=== PATIENT | male | born 1965 | race Two or more races ===

== ENCOUNTER 2024-05-03 12:46 | Emergency (ER) | payer BC, SELFPAY ==
[2024-05-03 12:47] VITALS: BMI 32.5
[2024-05-03 13:51] VITALS: BP 170/129; BP 180/131; PULSE 107; RESP 20; TEMP 36.8; O2SAT 97
--- NOTE | 2024-05-03 14:45 | PD.EDADULT ---
ED General RME/HPI General Chief complaint: Neuro Symptoms/Deficit Stated complaint: FACIAL DROOP SINCE SATURDAY Time Seen by Provider: 05/03/24 14:39 Arrival date/time: 05/03/24 12:46 CC: Right-sided facial droop HPI onset 3 and half days ago no prior history of similar events patient states he has a drooping of his right face he is unable to close his right eye completely complaining also of loss of sense of taste and smell, mild pain to the right face. And some very mild photosensitivity. Denies fever chills or deficits of the upper and lower extremity. Denies any word salad difficulty speaking. No other complaints at this time. Related Data Previous Rx's ?Medication ?Instructions ?Recorded prednisone 20 mg tablet See Taper PO BID 3 days #6 tabs 05/03/24 Allergies Allergy/AdvReac Type Severity Reaction Status Date / Time No Known Allergies Allergy Verified 05/03/24 12:47 Review of Systems Review of Systems Narrative Review of Systems: GEN: No fever, no chills, no weight loss EYES: No discharge, no visual changes, no pain HEENT: No ear pain, no congestion, no sore throat PULM: No shortness of breath, no cough, no congestion CV: No chest pain, no dyspnea on exertion, no palpitations GI: No nausea, no vomiting, no diarrhea, no pain, no constipation : No frequency, no urgency, no dysuria MUSC/SKEL: No joint pain, no back pain SKIN: No rash PSYCH: No hallucinations, no depression HEME/LYMPH: No easy bleeding or bruising tendencies NEURO: No weakness, no headache, right facial droop Past Medical History Social History SMOKING STATUS: Never smoker ED Exam Narrative Physical exam: [General: Obese not in cot no acute distress Head normocephalic HEENT: Face: Right-sided facial droop, droop with smile, ptosis in the right eye, pupils are PERRLA EOMs are intact tracking is on and hindered. Nose no rhinorrhea mouth pink moist membranes uvula is midline. Within acceptable limits Neck is supple nontender Chest equal chest rise nontender to palpation Respiratory: Clear to auscultation no wheezes crackles or rubs CV: Rate rhythm is regular no murmurs rubs or clicks Abdomen is distended secondary to body habitus soft nontender no masses positive bowel sounds all 4 quadrants Back: No CVA tenderness no spinous process tenderness from cervical spine thoracic and lumbar spine Skin: Intact no petechiae rash induration ulceration or crepitus Extremities: Moving all extremity against resistance cap refill less than 2 seconds neurosensory intact Neuro: Awake alert oriented x3 Glascow coma 15 no focal deficits] Course Quality Measures none Orders Category Date Time Status hydrALAZINE HCL [Apresoline] Med 05/03/24 14:45 Once 25 mg PO X1 ONE Vital Signs Vital signs: Vital Signs Temperature 98.3 F 05/03/24 13:51 Pulse Rate 107 H 05/03/24 13:51 Respiratory Rate 20 05/03/24 13:51 Blood Pressure 180/131 H 05/03/24 13:51 Pulse Oximetry (%) 97 05/03/24 13:51 Oxygen Delivery Method Room Air 05/03/24 13:51 MDM Patient data External records reviewed:: [facility] previous records Clinical information provided by:: patient Social determinants that could affect healthcare access:: none Patient has the following chronic illnesses:: Hypertension How is presenting disease/condition affected by chronic disease/condition?: uneffected by Evaluation data The following diagnostics were reviewed and interpreted by me:: other (specify) (None) Lab and/or radiology exams considered but not ordered:: None Interpretation Summary: Altman's palsy, hypertension Medications Medications considered but not ordered:: None Medication administrations:: Medication Administration History Hydralazine HCl (Hydralazine Hcl 25 Mg Tablet) 25 mg PO X1 ONE Stop: 05/03/24 14:46 None Consultations Consultation(s) initiated? (list below): No Diagnosis Differential Diagnosis ED Complaint MDM: CVA TIA Altman's palsy Most likely diagnosis given after review of the tests above:: Altman's palsy hypertension Admission Indicated Admission indicated?: not indicated Explain why admission is indicated or not indicated:: Stable for outpatient follow-up Admission Request Was there a request for admission?: No Disposition Plan Disposition Plan: Discharge Discharge Attestation Discharge Attestation: The patient and all family members were given an opportunity to ask questions and understood the discharge instructions. Discharge instructions specifically effects, indications for sooner follow up or return to the emergency department, and the expected course of current diagnosis. Patient condition: Stable Medical Decision Making Differential Diagnosis Differential Diagnosis: CVA TIA Altman's palsy Discharge Plan Plan Patient Disposition: HOME (Self Care) Patient condition on transfer: Stable Prescriptions/Referrals Prescriptions/Med Rec: New prednisone 20 mg tablet See Taper PO BID 3 Days Qty: 6 0RF Taper: Prednisone Taper 20 mg DAILY for 2 Days and 0 Hour 10 mg DAILY for 2 Days and 0 Hour 5 mg DAILY for 7 Days and 0 Hour Referrals: Truman Velasquez [Primary Care Provider] - In 1 week Problem List Clinical Impression: Altman's palsy, Hypertension Patient/Caregiver Discharge Instructions Education Materials: ED Hypertension, Established, ED Altman's Palsy Additional Instructions: Take medications as prescribed, follow-up with your primary care doctor. If there is worsening symptoms including garbled speech or weakness in your upper or lower extremities return immediately to the emergency room for reevaluation. Print Language: Yoruba Stand Alone Forms: Kary Award Info., Patient Portal Info Letter, Work/School Release PA/DIRECTOR OF [employer] Supervising Physician PA/[employer] OF [employer] Supervising Physician: Jean Marie Thomas ENP
[2024-05-03 14:51] VITALS: BP 160/122; PULSE 98
[2024-05-03] MEDS: hydrALAZINE HCL 25 MG TABLET PO (14:51)
[2024-05-03 15:32] VITALS: BP 156/106; PULSE 98; RESP 18; TEMP 36.9; O2SAT 95
== END 2024-05-03 15:32 | disposition home or self-care (01) ==
PROVIDERS: Emergency Provider Emergency Medicine; PCP Internal Medicine
DX: G51.0 Bell's palsy (principal); I10 Essential (primary) hypertension
CPT/HCPCS: 99282; A9270

== ENCOUNTER → 2024-07-02 | Outpatient (CLI) | payer BC, SELFPAY ==
[2024-07-02 08:57] LABS: Basophils % (Auto) 1 % (0-2.5); Eosinophils # (Auto) 0.2 Thou/mm3 (0.0-0.5); Eosinophils % (Auto) 4 % (0-10); Hematocrit 48.7 % (41.0-53.0); Hemoglobin 17.7 g/dL (13.5-16.0); Immature Granulocytes % (Auto) 0 % (0-0); Immature Granulocytes Auto 0.01 Thou/mm3 (0.00-0.00); Lymphocytes % (Auto) 36 % (10-50); Mean Corpuscular HGB Conc 36.3 g/dl (31.0-37.0); Mean Corpuscular Hemoglobin 34.8 pg (25.0-35.0); Mean Corpuscular Volume 96 fL (80-100); Monocytes # (Auto) 0.5 Thou/mm3 (0.0-0.8); Monocytes % (Auto) 9 % (0-12); Neutrophils # (Auto) 2.8 Thou/mm3 (1.8-7.7); Neutrophils % (Auto) 50 % (37-80); Nucleated Red Blood Cell % 0 /100 WBC (0); Platelet Count 162 Thou/mm3 (140-440); RDW Standard Deviation 45.3 fL (35.1-43.9); Red Blood Count 5.08 Miln/mm3 (4.50-5.90); White Blood Count 5.5 Thou/mm3 (3.8-10.6)
[2024-07-02 09:03] LABS: Glucose Estimated Average 105 mg/dL (80-131); Hemoglobin A1C 5.3 % Hgb (4.8-6.0)
[2024-07-02 09:21] LABS: Alanine Aminotransferase 57 U/L (10-49); Albumin, Serum 4.2 gm/dL (3.5-5.0); Albumin/Globulin Ratio 1.8 (1.2-2.2); Alkaline Phosphatase 88 U/L (46-116); Anion Gap 7 (7-16); Aspartate Amino Transferase 58 U/L (0-34); BUN/Creatinine Ratio 13 Ratio (12-20); Bilirubin,Total 1.8 mg/dL (0.3-1.2); Blood Urea Nitrogen 13 mg/dL (9-23); Calcium 9.9 mg/dL (8.3-10.6); Calcium (Corrected) 9.9 mg/dL (8.5-10.1); Cardiac Risk Estimate 5.2 RATIO (4.0-6.7); Chloride 108 mMol/L (98-107); Cholesterol 182 mg/dL (132-200); Globulin 2.4 gm/dL (2.3-3.5); Glucose 109 mg/dL (74-106); HDL Cholesterol 35 mg/dL (40-60); LDL Cholesterol,Calculated 117 mg/dL (0-130); Osmolality,Calculated 284 (275-295); Potassium 4.2 mMol/L (3.4-5.1); Sodium 142 mMol/L (136-145); Thyroid Stimulating Hormone 1.78 uIU/mL (0.55-4.78); Total Protein 6.6 gm/dL (5.7-8.2); Triglycerides 150 mg/dL (30-150); eGFR > 60 See Note
[2024-07-02 09:31] LABS: T4 (Thyroxine) 6.3 mcg/dL (4.5-10.9)
[2024-07-08 06:44] LABS: Gamma Glutamyl Transpeptidase* 165 U/L (3-85)
== END | disposition home or self-care (01) ==
LOC: COPL 07:58
PROVIDERS: PCP Family Medicine; Referring Provider Nurse Practitioner Family; Visit Provider Nurse Practitioner Family
DX: I10 Essential (primary) hypertension (principal); K76.0 Fatty (change of) liver, not elsewhere classified
CPT/HCPCS: 36415; 80053; 80061; 82977; 83036; 84436; 84443; 85025